=== PATIENT | male | born 1960 | race Caucasian/White ===

== ENCOUNTER 2018-06-22 09:54 | Emergency (ER) | payer OTHER ==
[~2018-06-22] VITALS: Ht 175.3 cm; Wt 104.3 kg
[~2018-06-22 09:54] MED LIST: BACTRIM DS TAB1 EACH; CLOTRIMAZOLE 1%; GEMFIBROZIL 60600 M1; KEFLEX500 MG PO; LISINOPRIL40 MG PO; NORCO 5-325 TA1 EACH PO; PRAVACHOL40 MG PO; TOPICORT15 G2 TP; TOPROL XL25 MG PO
[2018-06-22] MEDS ORDERED: BLOOD PRESSURE MED (10:10)
[2018-06-22 10:35] LABS: ABSOLUTE BASOPHILS 0.1 thou/uL (0.0-0.2); ABSOLUTE EOSINOPHILS 0.2 thou/uL (0.0-0.7); ABSOLUTE LYMPHOCYTES 1.4 thou/uL (0.8-5.3); ABSOLUTE MONOCYTES 0.6 thou/uL (0.0-1.2); ABSOLUTE NEUTROPHILS 5.4 thou/uL (1.6-8.1); BASOPHILS 1.1 %; EOSINOPHILS 2.4 %; HEMATOCRIT 47.6 % (42.0-52.0); HEMOGLOBIN 16.4 gm/dL (14.0-18.0); LYMPHOCYTES 17.8 %; MCH 30.2 pg (26.0-34.0); MCHC 34.6 g/dL (28.0-37.0); MCV 87.3 fL (80.0-100.0); NUCLEATED RBCS 0 /100WBC; PLATELET COUNT* 256 thou/uL (150-400); POLYS 70.7 %; RBC 5.45 mil/uL (4.50-6.00); RDW-CV 13.5 % (10.5-14.5); WBC 7.6 thou/uL (4.0-11.0)
[2018-06-22 10:45] LABS: ANION GAP 8 mmol/L (7-16); APTT 27.6 Seconds (25.0-31.3); BUN 11 mg/dL (7-18); CALCIUM 9.2 mg/dL (8.5-10.1); CHLORIDE 102 mmol/L (98-107); CO2 31 mmol/L (21-32); CREATININE 1.1 mg/dL (0.6-1.3); GLUCOSE 165 mg/dL (70-99); POTASSIUM 3.8 mmol/L (3.5-5.1); PROTIME 10.2 Seconds (9.20-11.50); SODIUM 141 mmol/L (136-145)
[2018-06-22 10:54] LABS: ALBUMIN 3.6 g/dL (3.4-5.0); ALKALINE PHOSPHATASE 109 U/L (46-116); LIPASE 260 U/L (73-393); SGOT 21 U/L (15-37); SGPT 39 U/L (30-65); TOTAL BILIRUBIN 0.8 mg/dL (<0.1-1.0); TOTAL PROTEIN 8.3 g/dL (6.4-8.2); TROPONIN-I LEVEL <0.06 ng/mL (<0.06)
[2018-06-22 11:37] LABS: URINE BILIRUBIN NEGATIVE (Negative); URINE BLOOD NEGATIVE (Negative); URINE CLARITY CLEAR; URINE COLOR YELLOW; URINE GLUCOSE-RANDOM NEGATIVE (Negative); URINE KETONES NEGATIVE (Negative); URINE LEUKOCYTES-REFLEX NEGATIVE (Negative); URINE NITRITE-REFLEX NEGATIVE (Negative); URINE PROTEIN NEGATIVE (Negative); URINE UROBILINOGEN 0.2 E.U./dl (0.2-1.0)
[2018-06-22] MEDS ORDERED: PHENERGAN 25 MG25 M1 PO (11:46)
[2018-06-22] MEDS ORDERED: FLAGYL500 M1 PO (11:46)
[2018-06-22] MEDS ORDERED: CIPRO500 MG PO (11:46)
[2018-06-22 12:34] LABS: HEMATOCRIT 45.6 % (42.0-52.0); HEMOGLOBIN 15.9 gm/dL (14.0-18.0)
[2018-06-22 13:18] VITALS: BP 188/104
--- NOTE | 2018-06-23 11:39 | EKG ---
[place] [address] ELECTROCARDIOGRAM REPORT Name: DAMASO CALABRESE Room: [facility]#: [id number] Admission: 06/22/18 Attend Phys: Discharge: 06/22/18 Date of : 58 Report #: [id number] THIS REPORT FOR: //name// [facility] ED Test Date: 2018-06-22 Test Time: 11:16:31 Pat Name: DAMASO CALABRESE Department: Room: Gender: M [employer]: : 1960 Requested By: Tessy Lucia Order Number: [id number] MD: Bernardo Mitchell Measurements Intervals [place] Rate: 108 P: 54 [place]: 163 QRS: 59 QRSD: 90 T: 9 QT: 336 QTc: 451 Interpretive Statements Sinus tachycardia Probable left atrial enlargement Borderline repolarization abnormality No previous ECG available for comparison Electronically Signed On 06-23-2018 11:39:09 CDT by Bernardo Mitchell [email or web address] <ELECTRONICALLY SIGNED> By: Bernardo Mitchell MD, [facility] 06/23/18 1139 [id number] 1116 Bernardo Mitchell MD, FACC /EPI
== END 2018-06-22 13:19 | disposition home or self-care (01) ==
LOC: M.ERS 09:54
PROVIDERS: Nurse Practitioner Family
DX: K57.32 Diverticulitis of large intestine without perforation or abscess without bleeding (principal); K62.5 Hemorrhage of anus and rectum; R42 Dizziness and giddiness; I10 Essential (primary) hypertension; Z88.8 Allergy status to other drugs, medicaments and biological substances; Z87.442 Personal history of urinary calculi

== ENCOUNTER 2018-06-25 16:28 | Emergency (ER) | payer OTHER ==
[~2018-06-25] VITALS: Ht 175.3 cm; Wt 103.0 kg
[~2018-06-25 16:28] MED LIST changes: +BLOOD PRESSURE MED; +CIPRO500 MG PO; +FLAGYL500 M1 PO; +PHENERGAN 25 MG25 M1 PO
[2018-06-25] MEDS ORDERED: INDAPAMIDE1.25 MG PO (16:38)
[2018-06-25 17:07] LABS: ABSOLUTE BASOPHILS 0.1 thou/uL (0.0-0.2); ABSOLUTE EOSINOPHILS 0.2 thou/uL (0.0-0.7); ABSOLUTE LYMPHOCYTES 1.7 thou/uL (0.8-5.3); ABSOLUTE MONOCYTES 0.8 thou/uL (0.0-1.2); BASOPHILS 1.3 %; EOSINOPHILS 2.5 %; HEMATOCRIT 47.7 % (42.0-52.0); HEMOGLOBIN 16.6 gm/dL (14.0-18.0); MCH 30.2 pg (26.0-34.0); MCHC 34.7 g/dL (28.0-37.0); MONOCYTES 10.7 %; MPV 8.9 fl. (7.2-11.1); NUCLEATED RBCS 0 /100WBC; PLATELET COUNT* 303 thou/uL (150-400); POLYS 63.5 %; RBC 5.48 mil/uL (4.50-6.00); RDW-CV 13.8 % (10.5-14.5); WBC 7.9 thou/uL (4.0-11.0)
[2018-06-25 17:16] LABS: ANION GAP 10 mmol/L (7-16); BUN 15 mg/dL (7-18); CALCIUM 9.5 mg/dL (8.5-10.1); CHLORIDE 101 mmol/L (98-107); CO2 27 mmol/L (21-32); CREATININE 1.3 mg/dL (0.6-1.3); GLUCOSE 126 mg/dL (70-99); POTASSIUM 4.1 mmol/L (3.5-5.1); SODIUM 138 mmol/L (136-145)
[2018-06-25 17:18] LABS: PROTIME 10.3 Seconds (9.20-11.50)
[2018-06-25 17:27] LABS: ALBUMIN 3.6 g/dL (3.4-5.0); ALKALINE PHOSPHATASE 104 U/L (46-116); LIPASE 585 U/L (73-393); NT-PRO BRAIN NAT PEPTIDE 8 pg/mL (<300); SGPT 93 U/L (30-65); TOTAL BILIRUBIN 0.6 mg/dL (<0.1-1.0); TOTAL PROTEIN 8.1 g/dL (6.4-8.2); TROPONIN-I LEVEL <0.06 ng/mL (<0.06)
[2018-06-25 17:51] LABS: SGOT 86 U/L (15-37)
[2018-06-25 19:08] VITALS: BP 129/85
--- NOTE | 2018-06-26 14:44 | EKG ---
[place] [address] ELECTROCARDIOGRAM REPORT Name: DAMASO CALABRESE Room: [facility]#: [id number] Admission: 06/25/18 Attend Phys: Discharge: 06/25/18 Date of : 58 Report #: [id number] THIS REPORT FOR: //name// [facility] ED Test Date: 2018-06-25 Test Time: 16:33:25 Pat Name: DAMASO CALABRESE Department: Room: Gender: M [employer]: : 1960 Requested By: Anastacia Carl Order Number: [id number] MD: Tej Lopes Measurements Intervals [place] Rate: 90 P: 48 [place]: 144 QRS: 63 QRSD: 90 T: 51 QT: 345 QTc: 422 Interpretive Statements Sinus rhythm Atrial premature complex Minimal ST depression, diffuse leads Baseline wander in lead(s) I,V4 Compared to ECG 06/22/2018 11:16:31 Atrial premature complex(es) now present ST (T wave) deviation now present Sinus tachycardia no longer present Electronically Signed On 06-26-2018 14:44:20 CDT by Tej Lopes [email or web address] <ELECTRONICALLY SIGNED> By: Tej Lopes MD, [facility] 06/26/18 1444 [id number] [id number] Tej Lopes MD, [facility] /EPI
== END 2018-06-25 19:09 | disposition home or self-care (01) ==
LOC: M.ERS 16:28
PROVIDERS: Personal Emergency Response Attendant
DX: K85.90 Acute pancreatitis without necrosis or infection, unspecified (principal); R00.2 Palpitations; I10 Essential (primary) hypertension; Z88.8 Allergy status to other drugs, medicaments and biological substances; Z87.442 Personal history of urinary calculi

== ENCOUNTER → 2018-07-09 | Outpatient (CLI) | payer OTHER ==
[~2018-07-09] MED LIST changes: +INDAPAMIDE1.25 MG PO
== END ==
LOC: M.ULTRA 07-04 08:47 → M.CT 07:30 → M.ULTRA 08:56
DX: R16.0 Hepatomegaly, not elsewhere classified (principal); K76.0 Fatty (change of) liver, not elsewhere classified; N28.1 Cyst of kidney, acquired

== ENCOUNTER → 2018-07-21 | Outpatient (CLI) | payer OTHER | LOC: M.CT 07:53 | DX: K57.32 Diverticulitis of large intestine without perforation or abscess without bleeding (principal); K76.0 Fatty (change of) liver, not elsewhere classified; R93.2 Abnormal findings on diagnostic imaging of liver and biliary tract; Z87.19 Personal history of other diseases of the digestive system ==

== ENCOUNTER → 2018-11-20 | Outpatient (CLI) | payer OTHER ==
[2018-11-20 08:41] LABS: POTASSIUM 3.9 mmol/L (3.5-5.1)
== END ==
LOC: M.LAB 04:31
PROVIDERS: Anesthesiology
DX: E87.6 Hypokalemia (principal); E11.9 Type 2 diabetes mellitus without complications